=== PATIENT | male | born 1980 | race Caucasian/White ===

== ENCOUNTER 2023-10-14 11:43 | Emergency (ER) | payer MEDICARE, MEDICAID ==
[~2023-10-14] VITALS: Ht 177.8 cm; Wt 118.0 kg
[2023-10-14 12:18] VITALS: TEMP 98.7
[2023-10-14 13:30] VITALS: BP 134/63; PULSE 67; RESP 18; O2SAT 99
== END 2023-10-14 13:37 | disposition home or self-care (01) ==
LOC: ER 11:44
DX: S80.02XA Contusion of left knee, initial encounter (principal); Z88.1 Allergy status to other antibiotic agents; W19.XXXA Unspecified fall, initial encounter; Y93.89 Activity, other specified; Y92.89 Other specified places as the place of occurrence of the external cause; Y99.8 Other external cause status
CPT/HCPCS: 73564; 99284

== ENCOUNTER 2025-03-10 19:12 | Emergency (ER) | payer MEDICARE, MEDICAID ==
[~2025-03-10] VITALS: Ht 175.3 cm; Wt 108.0 kg
[2025-03-10 19:16] VITALS: BP 157/89; PULSE 76; RESP 15; TEMP 98.4; O2SAT 99
--- NOTE | 2025-03-10 19:26 | Physician Documentation ---
History of Present Illness ~ Chief Complaint: Bite-insect Stated Complaint: BEE STING OK to notify your PCP?: Yes Primary Medical Doctor: [facility] Source: patient Mode of Arrival: POV Exam Limitations: no limitations HPI 44-year-old male presents via EMS for painful bee sting right ribcage which occurred today. He states that this is his 3rd bee sting but he has never had an anaphylactic reaction before. Airway is clear and he is speaking in full sentences. Tetanus within 5 years?: Yes Medication Reconciliation Allergies: Coded Allergies: amoxicillin (Verified Allergy, Unknown, 03/10/25) Past Medical History Past Surgical History: no surgical history Alcohol Use: None Drug Use: none Lives with: Other Lives In: Assisted Care Occupation: other Review of Systems All Other Systems at this time: Reviewed and Negative Physical Exam Vital Signs: RN Vital Signs have been reviewed: Yes, Temperature: 98.4, Source: Temporal, Heart Rate: 76, Respiratory Rate: 15, BP: 157/89, Pulse Oximetry: 99, Weight: 108.000 Pulse Oximetry Reflects: adequate oxygenation Physical Exam General: Alert, no distress. HEENT: No injection, moist mucous membranes. Neck: Full range of motion. Respiratory: No respiratory distress, equal chest rise and fall. Chest: No accessory muscle use. Cardiovascular: Regular rate and rhythm. Gastrointestinal: Nondistended. Extremities: Normal range of motion, no deformity. Neurologic: Oriented x4. Psychiatric: Normal mood and affect. Skin: Normal color, warm and dry. Small area of erythema to right ribcage next to nipple, no stinger in place. 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 He has not taken any medication for the pain. He does not show any symptoms of anaphylaxis. He does not have any hives and his airway the lungs a re clear, no tongue swelling. We discussed that you can use Tylenol and ibuprofen at home for pain relief and if it becomes itchy he can use Benadryl cream. We discussed that he should refrain from itching as this can cause a secondary infection that would require an antibiotic. But at this time he does not require any antibiotics. He agrees with this plan. Differential Dx:Considerations: Include: Allergic reaction, Anaphylaxis, Cellulitis, Neurovascular injury, Retained foreign body Departure Disposition: 01 HOME / SELF CARE / HOMELESS Impression: Primary Impression: Insect bites Condition: Stable Discharge Instructions: Insect Bite, Adult, [id number] Additional Instructions: Return back here for any new or worsening symptoms. You can use Tylenol or ibuprofen for the pain, if it becomes itchy you can use Benadryl cream. Please do not itch the site as it can become infected and require antibiotics Referrals: NO PRIMARY CARE PROVIDER (PCP) Education Educated: Patient Educated regarding: diagnosis, treatment, prognosis, need for follow up Additional Comment Medical Screen Exam This patient recieved a medical screening examination. After reviewing the individual's medical complaints with presenting symptoms and performing an appropriate physical examination, it was determined that no immediate life- threatening emergency medical condition is present. This individual is also not a women having contractions. Signature Scribe Signature: . Attestation: Scribed for Emergency,Department by Ana Romano NP . 03/10/25 19:38 Parts of this note were created using [employer] voice recognition software program. While efforts were made to correct any mistakes made by this voice recognition software program, nonsensical phrases may remain in this note. In addition, there may be errors and syntax, grammar, content and spelling. ANA BADILLO [facility] Mar 10, 2025 19:26
== END 2025-03-10 19:38 | disposition home or self-care (01) ==
LOC: ER 19:12
DX: T63.441A Toxic effect of venom of bees, accidental (unintentional), initial encounter (principal); Z88.0 Allergy status to penicillin; Y92.89 Other specified places as the place of occurrence of the external cause
CPT/HCPCS: 99283